=== PATIENT | male | born 1975 | race Caucasian/White ===

== ENCOUNTER 2018-07-13 15:36 | Emergency (ER) | payer OTHER ==
[~2018-07-13] VITALS: Ht 188 cm; Wt 99.8 kg
[~2018-07-13 15:36] MED LIST: CYCL10 PO; IBUP800 PO; META800 PO; METPRE4DP PO; Naprosyn500 MG PO; OXYACE5T PO; PRED1 PO; Percocet 5-3251 EACH PO; Valium5 MG PO
[2018-07-13] MEDS ORDERED: LISI5 PO (16:12)
[2018-07-13] MEDS ORDERED: IBUP600 PO (17:45)
[2018-07-13] MEDS ORDERED: Percocet 5-3251 EACH PO (17:45)
[2018-07-13] MEDS ORDERED: Silvadene20 GM TOP (17:45)
== END 2018-07-13 18:16 | disposition home or self-care (01) ==
LOC: ER 15:36
DX: T23.002A Burn of unspecified degree of left hand, unspecified site, initial encounter (principal); T31.0 Burns involving less than 10% of body surface; X19.XXXA Contact with other heat and hot substances, initial encounter; I10 Essential (primary) hypertension; Z79.899 Other long term (current) drug therapy
CPT/HCPCS: 16020; 90471; 90714; 96374-59; 96375-59; 99283-25; J1170; J2405

== ENCOUNTER → 2020-08-30 | Outpatient (CLI) | payer BC ==
[~2020-08-30] MED LIST changes: +IBUP600 PO; +LISI5 PO; +Silvadene20 GM TOP
== END ==
LOC: LAB 11:09 → LAB SHORT 11:09
DX: L91.8 Other hypertrophic disorders of the skin (principal)
CPT/HCPCS: 88304

== ENCOUNTER → 2021-07-11 | Outpatient (CLI) | payer BC | END | disposition home or self-care (01) | LOC: LAB SHORT 08:30 | DX: K21.9 Gastro-esophageal reflux disease without esophagitis (principal) | CPT/HCPCS: 87338 ==